=== PATIENT | male | born 1950 | race African-American/Black ===

== ENCOUNTER → 2017-10-29 | Outpatient (CLI) | payer BC ==
[~2017-10-29] MED LIST: AUGM875T PO; HYDR-2768 PO; POTA-267 PO; VERA120T3 PO
--- NOTE | 2017-10-30 15:16 | EKG ---
Date Performed: 10/29/2017 Time Performed: 15:25:06 PTAGE: 67 years EKG: SINUS BRADYCARDIA BORDERLINE ECG Since the PREVIOUS TRACING , no significant change noted PREVIOUS TRACIN09/27/2010 12.10 DOCTOR: Dewey Bradshaw Interpretating Date/Time 10/30/2017 15:13:42
== END ==
LOC: HCAV 15:02
PROVIDERS: ATTEND Family Medicine
DX: Z01.818 Encounter for other preprocedural examination (principal); R00.1 Bradycardia, unspecified
CPT/HCPCS: 93005

== ENCOUNTER 2018-01-31 09:30 | Inpatient (IN) ==
[2018-01-31] MEDS ORDERED: Chlorhexidine Gluconate 2% 1 Pack (2 Cloths) TOPICAL SCH (11:30)
[2018-01-31] MEDS ORDERED: Metoprolol Tartrate 25 MG Tablet PO SCH (11:30)
[2018-01-31] MEDS ORDERED: Sodium Chlor 0.9% Inj 40 ML, Bupivacaine Liposo PF 1.3% Inj 20 ML P-ARTICULR SCH ×2 (11:45)
[2018-01-31] MEDS ORDERED: Sodium Chlor 0.9% Inj 500 ML IV.SIG SCH (12:00)
[2018-01-31] MEDS ORDERED: Vancomycin Inj 1 GM/200 ML PIGGYBACK IV.SIG SCH (12:00)
[2018-01-31] MEDS ORDERED: SODIUM CHLOR 0.9% IV.SIG SCH (12:00)
[2018-01-31] MEDS ORDERED: TRANEXAMIC ACID IV.SIG SCH (12:00)
[2018-01-31] MEDS ORDERED: ceFAZolin 2 GM Premix Inj 2 GM/50 ML PIGGYBACK IV.SIG ONE (14:19)
[2018-01-31] MEDS ORDERED: MethylPREDNISolone Sod Succinate Inj 125 MG/2 ML Vial ONE (14:21)
[2018-01-31] MEDS ORDERED: Lidocaine PF 1% Inj 5 ML Syringe INFILTRATN ONE (14:50)
[2018-01-31] MEDS ORDERED: Post-op Orders (for Pharmacy) OTHER STA (15:53)
[2018-01-31] MEDS ORDERED: Morphine Inj 4 MG/ML Vial IV.PUSH PRN (15:53)
[2018-01-31] MEDS ORDERED: Temazepam 15 MG Capsule PO PRN (15:53)
[2018-01-31] MEDS ORDERED: Bisacodyl 10 MG Supp RECTAL PRN (15:53)
--- NOTE | 2018-01-31 16:00 | P.OP ---
- Preoperative Diagnosis (1) Metastatic adenocarcinoma to bone Comment: Impending pathologic fracture left femur. History of prostate carcinoma - Postoperative Diagnosis (1) Metastatic adenocarcinoma to bone Comment: Impending pathologic fracture left femur. History of prostate carcinoma Date of procedure: 01/31/18 Procedure: Prophylactic intramedullary andi left femur Anesthesia: GETA Surgeon: Jese Wang MD Platform Loader: Negin Do PA-C Operation and Findings: EBL: 100 cc INDICATION: This patient is a 67-year-old white male with an impending pathologic fracture of the left hip. He had a CT showing significant bony destruction and a known history of metastatic prostate carcinoma to bone. He now presents for prophylactic intramedullary rodding of the left femur NOTE: Negin Do PA-C, PA-C was present for the entire surgical procedure as my nurse first aid. In my medical opinion her skill and care was necessary for proper management of this patient PROCEDURE: The patient was brought to the operating room and anesthetized in the supine position. He was placed on the fracture table with the left leg held extended. The opposite leg was in the well leg ellis. The hip was aligned anatomically. The hip and leg was scrubbed with alcohol followed by Hibiclens followed by ChloraPrep. A timeout was done and antibiotics were given within 1 hour time window. A longitudinal incision was made over the lateral aspect of the proximal femur. Dissection continued down to the top of the greater trochanter. A cannulated awl was placed down through the top of the greater trochanter followed by placement of the guidepin along the shaft of the femur. This was reamed distally to 2 mm greater than the andi size and proximally to 17 mm. The reamings were captured and sent to pathology for later analysis. A separate incision was made laterally followed by placement of guidepin to the proper position of the femoral head. This is reamed and tapped in the proper length was placed up into the proper location. A single transverse screw was placed distally through the andi. Intraoperative x-rays were obtained. Alignment was satisfactory. No complication was noted. The wound was irrigated copiously. Hemostasis was controlled. The fascia was closed with interrupted Vicryl suture, subcutaneous tissue 2-0 Vicryl suture, skin with running intradermal 3-0 Vicryl followed by Steri-Strips and benzoin. A sterile dressing was applied The patient was awakened and taken to the recovery room in satisfactory condition. FINDINGS: There was evidence of some consolidation of the bone in the region of the intertrochanteric fracture. Andi position appeared to be very satisfactory. There was no complication that was appreciated
--- NOTE | 2018-01-31 16:07 | P.DCO ---
- Physical Therapy Physical Therapy: Gait training Hip: Hip fracture, Progress to weight bearing Left Lower Extremity Weight Bearing: Weight bearing as tolerated - Nursing RN: 3 days/week x 2 weeks Dressing changes: Do not change dressing - Certification Need for Home Health services: I have seen patient Rema Moura on 01/31/18. My clinical findings support the need for the requested home health care services because: Need for Home Health Services: Limited ability to care for self, High risk of falls Homebound Certification: I certify that my clinical findings support that this patient is homebound because: Homebound Certification: Unsteady gait/balance
[2018-01-31] MEDS ORDERED: fentaNYL Citrate Inj 100 MCG/2 ML Ampul ONE (16:28)
[2018-01-31] MEDS ORDERED: *morphine SULFATE 4 MG/ML PERIprocedure ONLY ONE ×2 (16:32→16:43)
--- NOTE | 2018-01-31 17:34 | XR ---
EXAM DATE: 01/31/2018 5:24 PM EDT AGE/SEX: 67 years / Male INDICATIONS: ORIF done in operating room. CLINICAL DATA: This is the patient's initial encounter. Patient reports that signs and symptoms have been present for 1 day and indicates a pain score of Nonresponsive. MEDICAL/SURGICAL HISTORY: Non-responsive. Non-responsive. COMPARISON: No prior exams available for comparison. FINDINGS: AP and lateral postoperative films were obtained demonstrating a peritoneal extending from the proxim al femur into the distal shaft. Fixation device appears to be properly positioned. CONCLUSION: Status post ORIF of the left femur with placement of a trochanteric nail . Electronically signed by: Bryan Beckford MD 01/31/2018 5:33 PM EDT
[2018-01-31] MEDS: Multivitamin/Minerals Therapeutic Tablet PO SCH (20:36)
[2018-01-31] MEDS: Senna/Docusate Sodium 8.6/50 MG Tablet PO SCH (20:36)
[2018-02-01] MEDS: Verapamil SR 240 MG Tablet PO SCH ×2 (08:15→08:50)
[2018-02-01] MEDS: Multivitamin/Minerals Therapeutic Tablet PO SCH (08:50)
[2018-02-01] MEDS: Senna/Docusate Sodium 8.6/50 MG Tablet PO SCH (08:50)
[2018-02-01] MEDS ORDERED: hydroCHLOROthiazide 25 MG Tablet PO SCH (09:00)
[2018-02-01] MEDS ORDERED: predniSONE 5 MG Tablet PO SCH (09:00)
[2018-02-01] MEDS ORDERED: ABIRATERONE PO SCH (09:00)
[2018-02-01] MEDS ORDERED: ABIRATERONE 1000 MG PO SCH (09:00)
--- NOTE | 2018-02-01 09:44 | P.PNOP ---
Subjective Interval history: He is doing well. His patient is well controlled. His is present with him who also has questions about surgery. He denies any new leg pain. He is ready for discharge home today. Physical Exam Vital signs: Vital Signs 01/31/18 13:10 01/31/18 16:19 01/31/18 16:30 Temperature 97.6 F 96.5 F L Pulse Rate 48 L 67 60 Respiratory Rate 18 16 14 Blood Pressure 159/82 H 115/66 143/75 H Pulse Oximetry 99 100 100 01/31/18 16:45 01/31/18 17:00 01/31/18 20:00 Temperature 97.9 F Pulse Rate 54 L 50 L 59 L Respiratory Rate 15 13 18 Blood Pressure 141/64 H 138/68 135/67 Pulse Oximetry 100 100 100 02/01/18 00:00 02/01/18 01:19 02/01/18 04:00 Temperature 97.5 F L 97.8 F Pulse Rate 60 50 L Respiratory Rate 18 18 Blood Pressure 126/59 L 118/58 L Pulse Oximetry 100 2 L 99 02/01/18 07:44 02/01/18 09:20 Temperature Pulse Rate Respiratory Rate 18 18 Blood Pressure Pulse Oximetry Intake & Output 01/31/18 02/01/18 02/01/18 18:59 06:59 18:59 Intake Total 1000 / 1000 520 / 520 800 / 800 Output Total 425 / 425 Balance 575 / 575 520 / 520 800 / 800 Weight 78.3 kg 78.3 kg Intake: IV 200 / 200 200 / 200 800 / 800 LR 1000 mL Inj 1,000 ML @ 80 800 / 800 mls/hr IV.CONT .[id number] [facility] Rx# :[id number] Vancomycin Inj 1 gm In 200 ml @ 200 / 200 200 mls/hr IV.SIG [employer] [facility] Rx#:[id number] Ancef Inj 1,000 MG In NS Inj 200 / 200 100 ML @ 200 mls/hr IV.SIG Q6H [facility] Rx#:[id number] Oral 320 / 320 Anesthesia Amount 800 / 800 Output: Urine 400 / 400 Estimated Blood Loss 25 / 25 Other: # Voids 1 2 Date of Last Bowel Movement 01/31/18 01/31/18 01/31/18 Weight On Admission 78.3 kg Narrative: Laying in bed No acute distress His is at bedside Left lower extremity Dressing clean dry and intact. Minimal serosanguineous drainage proximal No erythema, mild swelling +motor, +sens, +nvi Neg homans - Constitutional no acute distress Results - Imaging Impressions Femur X-Ray 01/31/18 00:00 CONCLUSION: Status post ORIF of the left femur with placement of a trochanteric nail . - Procedures Prophylacitc IM justina left femur for impending fracture Assessment and Plan - Ortho Post Op Day # 1 - Problem List (1) Metastatic adenocarcinoma to bone Code(s): C79.51 - Secondary malignant neoplasm of bone Status: Acute - Assessment and Plan pod#1 s/p Prophylactic IM justina left femur for impending fracture Pain controlled. Ok to d/c home today. Limited HHC needed. PO pain meds as needed. Progress to full WBing left leg. Hold dressing changes unless saturated. Ice to left hip bid. F/U in 2 weeks as scheduled.
--- NOTE | 2018-02-02 19:06 | P.DS ---
Date of admission: 01/31/18 10:35 Primary care physician: Joseluis Gutierrez MD Attending physician on discharge: Jese Da Silva Anticipated date of discharge: 02/01/18 Brief History from admission: The patient was diagnosed with adenocarcinoma related to his prostate cancer. Imaging studies showed a large lesion in his left femur. He was referred to orthopaedics for consultation. It was felt that surgical IM rodding would be necessary for prophylactic treatment of his femur as he was high risk for pathological fracture. Surgery was recommended and the patient agreed. He presents now for the above. DS: Diagnosis - Discharge Diagnosis (1) Metastatic adenocarcinoma to bone Status: Acute DS: Medications - Discharge Medications Prescriptions: hydrocodone-acetaminophen 1 tab PO Q4H PRN #42 tab PRN Reason: Acute Pain DS: Summary Hospital Course: Surgical treatment was performed on the day of admission without complication. He recovered well in PACU and was transferred to the orthopaedic floor. Pain was controlled with IV and oral medications. He was compliant with physical therapy and all precautions. After 1 day he was discharged home with home health care. He was educated to progressively weightbear on his operative limb , to pursue a high fiber diet for 3-5 days postop and to ice the operative site 2 times daily for 7 days. He was given [place] for pain at discharge. - Time Spent with Patient Total time spent providing and/or coordinating discharge services: - Quality: VTE Deep Vein Thrombosis/Pulmonary Embolism Present on Admission: No Exam Vital signs: Intake & Output 02/01/18 02/02/18 02/02/18 18:59 06:59 18:59 Intake Total 1200 / 1200 Balance 1200 / 1200 Intake: IV 1200 / 1200 LR 1000 mL Inj 1,000 ML @ 80 1200 / 1200 mls/hr IV.CONT .[id number] [facility] Rx# :[id number] Other: Date of Last Bowel Movement 01/31/18 Results Procedures completed during hospitalization: Prophylacitc IM justina left femur for impending fracture Pending studies at discharge: Pending at discharge 01/31/18 08:11 Surgical [PTH] Routine - Impressions ITS Impressions Femur X-Ray 01/31/18 00:00 CONCLUSION: Status post ORIF of the left femur with placement of a trochanteric nail . Discharge Plan - Discharge Disposition Patient Disposition: W/Home Health Service - Discharge Condition Condition: Good - Discharge Order Discharge Orders: Discharge Order (Routine); Ordered 01/31/18 Ordered By: Jese Da Silva - Discharge Details Anticipated Discharge Date: 02/01/18 - Physicians Team Primary Care Provider: Joseluis Gutierrez Attending Provider: Jese Da Silva Other Providers: Shan Porter MD - Rxs /Orders / Referrals /Forms Prescriptions: New aspirin 81 mg Tablet,Chewable 81 mg PO BID RF: 0 hydrocodone-acetaminophen 7.5-325 mg Tablet 1 tab PO Q4H PRN (Reason: Acute Pain) Qty: 42 RF: 0 Continue abiraterone [Zytiga] 250 mg Tablet 1,000 mg PO DAILY hydrochlorothiazide 25 mg Tablet 25 mg PO DAILY prednisone 5 mg Tablet 5 mg PO DAILY verapamil 240 mg Tablet Extended Release 240 mg PO QAM Ambulatory Orders / Order Sets / DME: Walker With Front Wheels (1 each) (Routine) Location: Determined by Patient Ordered By: Jese Da Silva Referrals: Joseluis Gutierrez MD [Primary Care Provider] - See Instructions - Discharge Instructions Additional Instructions: FOLLOW UP WITH YOUR PRIMARY CARE PROVIDER IN 3-[address] UP [address] DA SILVA SCHEDULED. IF YOU HAVE QUESTIONS OR CONCERNS ABOUT THE APPOINTMENT, PLEASE CALL THE OFFICE TO RESCHEDULE IF NEEDED. NO DRIVING WHILE TAKING NARCOTIC MEDICINE. - Post Discharge Care Plan Care Plan Goals: Your Health Problems: Recent surgery - Intramedullary rodding of left femur for impending fracture, prophylactic Activity: Weight bear as tolerated left leg with a walker or cane. Goals to Promote Your Health: * To prevent worsening of your condition * To maintain your health at the optimal level Directions to Meet Your Goals: * Take your medications as prescribed * Follow your dietary instruction * Follow activity as directed * Keep your appointments as scheduled * Take your immunizations and boosters as scheduled * If your symptoms worsen call your PCP * If no PCP go to Urgent Care or Emergency Room Smoking is dangerous to your health. Avoid second hand smoke. You may reach the 24-hour crisis hotline for domestic abuse at .
== END 2018-02-01 14:51 | disposition home health service (06) ==
LOC: HSDI 10:35 → N06 17:31
PROVIDERS: ADMIT Orthopaedic Surgery Orthopaedic Surgery of the Spine; ATTEND Orthopaedic Surgery Orthopaedic Surgery of the Spine
DX: C79.51 Secondary malignant neoplasm of bone; M84.552A Pathological fracture in neoplastic disease, left femur, initial encounter for fracture; I10 Essential (primary) hypertension; Z85.46 Personal history of malignant neoplasm of prostate